=== PATIENT | male | born 1960 | race Hispanic/Latino ===

== ENCOUNTER 2024-09-20 22:57 | Emergency (ER) | payer SELFPAY ==
[2024-09-21] MEDS ORDERED: Milk Of Magnesia 30 ML UDCUP ONE (02:33)
[2024-09-21] MEDS ORDERED: Lidocaine Viscous Sol 2% 15 ml UD Cup ONE (02:33)
[2024-09-21] MEDS ORDERED: Famotidine 20 MG TAB ONE (02:34)
== END 2024-09-21 02:58 | disposition home or self-care (01) ==
LOC: CSHERS 22:57
DX: K29.00 Acute gastritis without bleeding (principal)
CPT/HCPCS: 74022; 93005